=== PATIENT | male | born 1950 | race Caucasian/White ===

== ENCOUNTER → 2017-10-22 | Outpatient (CLI) | payer OTHER ==
[~2017-10-22] MED LIST: APIX5TAB PO; CARV12.52 PO; CARV3.122 PO; LISI1TAB3 PO; OXYC-302 PO; REGADENOSON 0.4 MG/5 ML SYRINGE ONE; TIZA2CAP2 PO; TRAM-47 PO
== END | disposition home or self-care (01) ==
LOC: CFH 10:42
PROVIDERS: ATTEND Internal Medicine Cardiovascular Disease
DX: I48.2 Chronic atrial fibrillation (principal); I45.10 Unspecified right bundle-branch block; I07.1 Rheumatic tricuspid insufficiency; I11.9 Hypertensive heart disease without heart failure
CPT/HCPCS: 78452; 93017; 93306; A9502; J2785

== ENCOUNTER → 2017-12-04 | Outpatient (CLI) | payer MEDICARE, OTHER ==
[~2017-12-04] MED LIST changes: -REGADENOSON 0.4 MG/5 ML SYRINGE ONE
== END | disposition home or self-care (01) ==
LOC: CVU 10:42
PROVIDERS: ATTEND Internal Medicine Cardiovascular Disease
DX: I83.891 Varicose veins of right lower extremity with other complications (principal)
CPT/HCPCS: 93970

== ENCOUNTER → 2018-01-20 | Outpatient (CLI) | payer OTHER ==
[~2018-01-20] MED LIST changes: +CHOL200024 PO; +CINN500C2 PO; +LISI-167 PO; +MULT-224 PO; +OMEG1CAP6 PO; +OMNIPAQUE 350 MG/ML, 150 ML BOTTLE ONE; +SAW450CA7 PO
== END | disposition home or self-care (01) ==
LOC: CFH 12:46
PROVIDERS: ATTEND Internal Medicine Cardiovascular Disease
DX: J98.11 Atelectasis (principal); J98.6 Disorders of diaphragm; I48.91 Unspecified atrial fibrillation
CPT/HCPCS: 71046; 75572; 82565; Q9967

== ENCOUNTER 2018-01-22 06:33 | Inpatient (IN) | payer OTHER ==
[2018-01-20 14:40] VITALS: BP 129/89
[2018-01-20 15:15] LABS: BASOPHILS # (AUTO) 0.05 x10^3/uL (0-0.1); BASOPHILS % (AUTO) 1 % (0-1); EOSINOPHILS # (AUTO) 0.24 x10^3/uL (0-0.4); EOSINOPHILS % (AUTO) 3 % (1-7); LYMPHOCYTES # (AUTO) 1.68 x10^3/uL (1-3.4); LYMPHOCYTES % (AUTO) 24 % (22-44); MD NO; MEAN CORPUSCULAR HEMOGLOBIN 32.2 pg (27.5-34.5); MEAN CORPUSCULAR HGB CONC 33.5 g/dL (33.2-36.2); MEAN CORPUSCULAR VOLUME 95.9 fL (81-97); MEAN PLATELET VOLUME 8.5 fL (7.4-10.4); MONOCYTES % (AUTO) 10 % (2-9); NEUTROPHILS # (AUTO) 4.48 x10^3/uL (1.8-6.8); NEUTROPHILS % (AUTO) 63 % (42-75); PLATELET COUNT 208 x10^3/uL (130-400); RED BLOOD COUNT 5.32 x10^6/uL (4.38-5.82); RED CELL DISTRIBUTION WIDTH 13.6 % (9.4-14.8)
[2018-01-20 15:26] LABS: INTERNATIONAL NORMALIZED RATIO 1.11 (0.93-1.1); PROTHROMBIN TIME 11.4 Seconds (9.6-11.5)
[2018-01-20 15:28] LABS: ALANINE AMINOTRANSFERASE 40 U/L (12-78); ANION GAP 6 mmol/L (5-15); CALCIUM 9.7 mg/dL (8.5-10.1); CHLORIDE 103 mmol/L (98-107); CREATININE 1.01 mg/dL (0.7-1.3)
[2018-01-20 15:30] LABS: ALKALINE PHOSPHATASE 78 U/L (45-117); BILIRUBIN,TOTAL 1.8 mg/dL (0.2-1.0); TOTAL PROTEIN 7.8 g/dL (6.4-8.2)
[~2018-01-22] VITALS: Ht 175.3 cm; Wt 86.0 kg
[~2018-01-22 06:33] MED LIST changes: -LISI-167 PO; -OMNIPAQUE 350 MG/ML, 150 ML BOTTLE ONE
[2018-01-22] MEDS ORDERED: SODIUM CHLORIDE 0.9% 1,000 ML IV SCH ×2 (06:41→07:00)
[2018-01-22] MEDS ORDERED: LISI-167 PO (07:02)
[2018-01-22] MEDS ORDERED: MIDAZOLAM 1 MG/ML, 2ML ONE (07:28)
[2018-01-22] MEDS ORDERED: FENTANYL PF 250 MCG/5ML ONE (07:28)
[2018-01-22] MEDS ORDERED: LIDOCAINE-MPF 2%, 2ML ONE (07:29)
[2018-01-22] MEDS ORDERED: PROTAMINE SULFATE 10 MG/ML, 5ML ONE (07:29)
[2018-01-22] MEDS ORDERED: ROCURONIUM 10 MG/ML,10ML ONE (08:45)
[2018-01-22] MEDS ORDERED: PROPOFOL 10 MG/ML, 20ML ONE (08:45)
[2018-01-22] MEDS ORDERED: HEPARIN 1,000 UNITS/ML, 10ML ONE ×2 (08:45→08:55)
[2018-01-22] MEDS ORDERED: SUCCINYLCHOLINE 20 MG/ML, 10ML ONE (08:45)
[2018-01-22] MEDS ORDERED: ONDANSETRON 2MG/ML, 2ML ONE (08:46)
[2018-01-22] MEDS ORDERED: DEXAMETHASONE 4 MG/ML, 1ML ONE (08:46)
[2018-01-22] MEDS ORDERED: ZOLPIDEM 5MG TABLET PO PRN (10:30)
[2018-01-22] MEDS ORDERED: APIXABAN 5 MG TABLET ONE (10:35)
[2018-01-22] MEDS ORDERED: MORPHINE SULFATE 4 MG/ML, 1ML IVPush PRN (11:00)
[2018-01-22] MEDS ORDERED: OXYcodone 5 MG/5 ML ORAL.SOL UDC PO PRN (11:00)
[2018-01-22] MEDS ORDERED: EPHEDRINE 50 MG/ML, 1ML IM PRN (11:00)
[2018-01-22] MEDS ORDERED: DIPHENHYDRAMINE 50 MG/ML, 1ML IVPush PRN (11:00)
[2018-01-22] MEDS ORDERED: EPHEDRINE 50 MG/ML, 1ML IVPush PRN (11:00)
[2018-01-22] MEDS ORDERED: PROMETHAZINE 25 MG SUPP PR PRN (11:00)
[2018-01-22] MEDS ORDERED: FENTANYL PF 100 MCG/2ML IV PRN (11:00)
[2018-01-22] MEDS ORDERED: PROMETHAZINE 25 MG/ML, 1ML IV PRN (11:00)
[2018-01-22] MEDS ORDERED: PROMETHAZINE 12.5 MG SUPP PR PRN (11:00)
[2018-01-22] MEDS ORDERED: MIDAZOLAM 1 MG/ML, 2ML IV PRN (11:00)
[2018-01-22] MEDS ORDERED: ONDANSETRON ODT 8 MG PO PRN (11:00)
[2018-01-22] MEDS: APIXABAN 5 MG TABLET PO SCH ×2 (11:24→21:39)
[2018-01-22 12:23] VITALS: BP 87/53
[2018-01-22 14:00] VITALS: BP 97/56
[2018-01-22 15:45] VITALS: BP 113/68
[2018-01-22 16:53] VITALS: BP 114/76
[2018-01-22] MEDS: SOTALOL 80MG TABLET PO SCH (16:53)
[2018-01-22 20:00] VITALS: BP 113/73
[2018-01-23 01:46] VITALS: BP 129/86
[2018-01-23 04:41] VITALS: BP 158/102
[2018-01-23] MEDS: SOTALOL 80MG TABLET PO SCH ×2 (04:49→17:23)
[2018-01-23] MEDS ORDERED: NITROGLYCERIN 0.4 MG BOTTLE (25 TABS) SL PRN (05:00)
[2018-01-23] MEDS ORDERED: NITROGLYCERIN 0.4 MG/SPRAY SL PRN (05:00)
[2018-01-23] MEDS: ACETAMINOPHEN 325 MG TABLET PO PRN ×3 (05:15→15:33)
[2018-01-23 07:06] VITALS: BP 136/84
[2018-01-23] MEDS: OMEGA-3/FISH OIL CAPSULE PO SCH (08:18)
[2018-01-23] MEDS: APIXABAN 5 MG TABLET PO SCH ×2 (08:19→19:44)
[2018-01-23] MEDS: LISINOPRIL 20 MG TABLET PO SCH (08:19)
[2018-01-23] MEDS: MULTIVITAMIN 1 TABLET PO SCH (08:19)
[2018-01-23] MEDS ORDERED: CINNAMON BARK PO SCH (09:00)
[2018-01-23] MEDS ORDERED: LISINOPRIL 10 MG TABLET PO SCH (09:00)
[2018-01-23 12:18] VITALS: BP 128/83
[2018-01-23] MEDS ORDERED: KETOROLAC 30 MG/1 ML IVPush ONE (17:00)
[2018-01-23 17:20] VITALS: BP 120/80
[2018-01-23 19:45] VITALS: BP 97/62
[2018-01-24 00:23] VITALS: BP 133/92
[2018-01-24] MEDS ORDERED: SOTALOL 80MG TABLET PO SCH (06:00)
[2018-01-24 06:59] VITALS: BP 137/90
[2018-01-24] MEDS: MULTIVITAMIN 1 TABLET PO SCH (08:21)
[2018-01-24] MEDS: APIXABAN 5 MG TABLET PO SCH (08:21)
[2018-01-24] MEDS: LISINOPRIL 20 MG TABLET PO SCH (08:21)
[2018-01-24] MEDS: OMEGA-3/FISH OIL CAPSULE PO SCH (08:21)
[2018-01-24] MEDS ORDERED: SOTA80TA18 PO (11:10)
== END 2018-01-24 12:00 | disposition home or self-care (01) | DRG 274 ==
LOC: CACL 06:33 → 5SO 12:20 → CACL 20:56 → 5SO 20:56 → OBSVTOIN 20:57
PROVIDERS: ADMIT Internal Medicine Cardiovascular Disease; ATTEND Internal Medicine Cardiovascular Disease
PROC: 02583ZZ Destruction of Conduction Mechanism, Percutaneous Approach (ICD-10-PCS; 2018-01-22)
PROC: 03HY32Z Insertion of Monitoring Device into Upper Artery, Percutaneous Approach (ICD-10-PCS; 2018-01-22)
PROC: 4A133B1 Monitoring of Arterial Pressure, Peripheral, Percutaneous Approach (ICD-10-PCS; 2018-01-22)
PROC: 4A133J1 Monitoring of Arterial Pulse, Peripheral, Percutaneous Approach (ICD-10-PCS; 2018-01-22)
PROC: 4A0234Z Measurement of Cardiac Electrical Activity, Percutaneous Approach (ICD-10-PCS; principal; 2018-01-22 08:00)
DX: I48.0 Paroxysmal atrial fibrillation (principal); D68.69 Other thrombophilia; I10 Essential (primary) hypertension; I48.2 Chronic atrial fibrillation; E78.5 Hyperlipidemia, unspecified; E11.9 Type 2 diabetes mellitus without complications; E78.00 Pure hypercholesterolemia, unspecified
CPT/HCPCS: 36415; 71045; 80053; 85025; 85347; 85610; 85730; 93005; 93308; 93312; 93321; 93325; 93613; 93656; 93662; C1732; C1766; C1893; C1894; G0378; J1100; J1644; J1885; J2250; J2405; J2704; J2720; J3010; J3490; C1730; C1759; J0330